=== PATIENT | female | born 1970 | race Caucasian/White ===

== ENCOUNTER 2018-10-08 16:31 | Emergency (ER) | payer OTHER ==
--- NOTE | 2018-10-08 17:12 | EDM.PDOC ---
ED HPI GENERAL MEDICAL PROBLEM - General Chief Complaint: Lower Extremity Injury/Pain Stated Complaint: RT ANKLE INJURIED Time Seen by Provider: 10/08/18 16:36 Source of Information: Reports: Patient History Limitations: Reports: No Limitations - History of Present Illness INITIAL COMMENTS - FREE TEXT/NARRATIVE: Presents reporting that she fell on , October 03, 2018. She steps out of the shower with her right foot, slipped and her left foot flexed underneath her. Since that time she has had swelling, bruising and tenderness in her right ankle. Not much pain with weightbearing. No other injuries. Right Ankle Pain Score (Numeric/FACES): 4 - Related Data Allergies Allergy/AdvReac Type Severity Reaction Status Date / Time No Known Allergies Allergy Verified 10/08/18 16:47 Home Meds: Home Meds Budesonide/Formoterol [Symbicort 160-4.5 MCG] 2 puff INH BID 10/08/18 [History] Levothyroxine 1 tab PO DAILY 10/08/18 [History] Past Medical History Respiratory History: Reports: Asthma Endocrine/Metabolic History: Reports: Hypothyroidism - Infectious Disease History Infectious Disease History: Reports: Chicken Pox - Past Surgical History Female Surgical History: Reports: Tubal Ligation Musculoskeletal Surgical History: Reports: Hip Replacement Other Musculoskeletal Surgeries/Procedures:: bilat hip pain Social & Family History - Tobacco Use Smoking Status *Q: Never Smoker - Caffeine Use Caffeine Use: Reports: None - Recreational Drug Use Recreational Drug Use: No Review of Systems - Review of Systems Review Of Systems: ROS reveals no pertinent complaints other than HPI. ED EXAM, GENERAL - Physical Exam Exam: See Below General Appearance: Alert, No Apparent Distress Ears: Normal External Exam Nose: Normal Inspection Throat/Mouth: Normal Inspection Head: Atraumatic, Normocephalic Neck: Normal Inspection Respiratory/Chest: No Respiratory Distress, Lungs Clear Cardiovascular: Normal Peripheral Pulses, Regular Rate, Rhythm, No Murmur Extremities: Other (Right ankle mild swelling, lateral ecchymosis and multiple colors, full range of motion, CMS intact distally, strong pedal and posttibial pulse) Psychiatric: Normal Affect, Normal Mood Skin Exam: Warm, Dry, Intact, Normal Color, No Rash Course - Vital Signs Last Recorded V/S: Last Vital Signs Temp 36.7 C 10/08/18 16:42 Pulse 99 10/08/18 16:42 Resp 16 10/08/18 16:42 BP 133/89 10/08/18 16:42 Pulse Ox 100 10/08/18 16:42 - Orders/Labs/Meds Orders: Active Orders 24 hr Category Date Time Status DME for Discharge [COMM] Stat Oth 10/08/18 17:49 Ordered Departure - Departure Time of Disposition: 17:50 Disposition: Home, Self-Care 01 Condition: Good Clinical Impression: Fracture of distal end of tibia Qualifiers: Encounter type: initial encounter Fracture type: closed Fracture alignment: nondisplaced Laterality: right - Discharge Information Referrals: PCP,None [Primary Care Provider] - [facility] [Outside] Forms: ED Department Discharge Additional Instructions: 1. Wear boot. 2. Call Orthopedic clinic in am for follow up appointment. 3. Aleve 2 tabs am and pm or ibuprofen 2-3 tabs 3 times a day as needed for pain - My Orders Last 24 Hours: My Active Orders 10/08/18 17:49 DME for Discharge [COMM] Stat - Assessment/Plan Last 24 Hours: My Active Orders 10/08/18 17:49 DME for Discharge [COMM] Stat
--- NOTE | 2018-10-08 17:46 | CR ---
INDICATION: Pain TECHNIQUE: Three views right ankle COMPARISON: None FINDINGS: Bones: Alignment is normal. No fractures. Plantar and dorsal calcaneal spurs. Joint spaces: Unremarkable. Soft tissues: Lateral ankle edema. IMPRESSION: Lateral ankle edema. Plantar and dorsal calcaneal spurs. Dictated by Venancio Diane MD @ 10/08/2018 5:43:45 PM Dictated by: Venancio Diane MD @ 10/08/2018 17:43:51 (Electronically Signed)
== END 2018-10-08 18:10 | disposition home or self-care (01) ==
LOC: MW.ED 16:31
DX: S82.301A Unspecified fracture of lower end of right tibia, initial encounter for closed fracture (principal); J45.909 Unspecified asthma, uncomplicated; E03.9 Hypothyroidism, unspecified; Z79.899 Other long term (current) drug therapy; W01.0XXA Fall on same level from slipping, tripping and stumbling without subsequent striking against object, initial encounter
CPT/HCPCS: 73610-26-RT; 73610-RT; 99283-25